=== PATIENT | female | born 1945 | race African-American/Black ===

== ENCOUNTER 2017-12-20 09:21 | Emergency (ER) | payer MEDICARE, OTHER ==
[~2017-12-20] VITALS: Ht 162.6 cm; Wt 55.0 kg
[2017-12-20 10:17] VITALS: BP 122/70; PULSE 68; RESP 15; TEMP 97.2; O2SAT 100
[2017-12-20 10:21] VITALS: BP 122/70; PULSE 68; RESP 15; TEMP 97.2; O2SAT 100
[2017-12-20] MEDS ORDERED: LEVO25TA4 PO (11:39)
[2017-12-20] MEDS ORDERED: PIOG15TA5 PO (11:39)
--- NOTE | 2017-12-20 12:06 | PD ---
HPI Chief Complaint: Injury Time Seen by Provider: 11:56 Travel History International Travel<30 days: No Contact w/Intl Traveler<30days: No Traveled to known affect area: No History of Present Illness HPI 72 year-old female presents to the emergency room for evaluation of left ankle pain and swelling after falling a week ago. Patient states her blood pressure occasionally gets low and she got lightheaded while coming out of [employer]. She does not remember twisting or falling onto her ankle but believe she may have struck it against a rock. She denies loss of consciousness, hitting her head, headache, back pain, neck pain, hip pain, or any other injuries. She has been elevating and applying ice but has not taken anything for pain. Pain is localized to the lateral malleolus without radiation. Worsened with range of motion and ambulation. PFSH Past Medical History Cardiovascular Problems: Yes Diabetes: Yes Patient Takes Glucophage: No Thyroid Disease: Yes Tetanus Vaccination: Unknown Menopausal: Yes Past Surgical History Abdominal Surgery: Yes ("TUMMY TUCK") Cholecystectomy: Yes Social History Alcohol Use: No Tobacco Use: No Substance Use: No Allergies-Medications (Allergen,Severity, Reaction): Coded Allergies: No Known Allergies (Verified Adverse Reaction, Unknown, 12/20/17) Reported Meds & Prescriptions Reported Meds & Active Scripts Active Reported Levothyroxine (Levothyroxine Sodium) 25 Mcg Tab 25 Mcg PO DAILY Pioglitazone (Pioglitazone HCl) 15 Mg Tab 15 Mg PO DAILY Review of Systems Except as stated in HPI: all other systems reviewed are Neg Physical Exam Narrative GENERAL: Well-nourished, well-developed female no acute distress. Afebrile. Ambulatory. SKIN: Focused skin assessment warm/dry. Mild ecchymosis over the left lateral malleolus. HEAD: Normocephalic. EYES: No scleral icterus. No injection or drainage. NECK: Supple, trachea midline. No JVD or lymphadenopathy. CARDIOVASCULAR: Regular rate and rhythm without murmurs, gallops, or rubs. RESPIRATORY: Breath sounds equal bilaterally. No accessory muscle use. MUSCULOSKELETAL: No cyanosis. Moderate to significant edema and tenderness to palpation over the left lateral malleolus. Edema extends into the foot. 2+ dorsalis pedis pulse. Full range of motion of the left ankle. No tenderness to palpation of the foot. Data Data Last Documented VS Vital Signs Date Time Temp Pulse Resp B/P (MAP) Pulse Ox O2 Delivery O2 Flow Rate FiO2 12/20/17 10:21 97.2 68 15 122/70 (87) 100 Room Air Orders Orders Ankle, Complete ([id number]) (12/20/17 ) Splint Or Brace Apply/Monitor (12/20/17 13:20) Ed Discharge Order (12/20/17 13:22) MDM Medical Decision Making Medical Screen Exam Complete: Yes Emergency Medical Condition: Yes Medical Record Reviewed: Yes Differential Diagnosis Sprain, strain, contusion, fracture Narrative Course 72-year-old female presents to the emergency room for evaluation of left ankle pain and swelling after injuring it a week ago. Patient tripped and fell and has had persistent pain and edema since then. Physical exam reveals moderate tenderness to palpation and edema over the left lateral malleolus. Edema extends into the foot. There is no foot pain. She has full range of motion. It is neurovascularly intact with 2+ dorsalis pedis pulse. X-ray is negative for fracture. This is ankle sprain. Patient placed in ankle stirrup. Told to follow-up with her primary care physician or return for worsening symptoms. She understands and agrees to plan. Diagnosis Primary Impression: Left ankle sprain Qualified Codes: S93.402A - Sprain of unspecified ligament of left ankle, initial encounter Referrals: Primary Care Physician Additional Instructions: Rest and drink plenty of fluids. Ankle stirrup as needed for pain. Take ibuprofen with food as directed, as needed for pain. Apply ice to the affected area for 20 minutes at a time, as needed for pain and swelling. Follow-up with a primary care physician. Return to the emergency room for worsening symptoms. Med/Other Pt SpecificInfo: Prescription(s) given Disposition: 01 DISCHARGE HOME Condition: Stable Miroslava Michaels Dec 20, 2017 12:06
--- NOTE | 2017-12-20 13:18 | RADRPT ---
EXAM DATE/TIME: 12/20/2017 12:23 [facility] COMPARISON: No previous studies available for comparison. INDICATIONS : Twisted ankle x1 week ago pain with swelling lateral malleous. MEDICAL HISTORY : None. SURGICAL HISTORY : None. ENCOUNTER: Initial ACUITY: 1 week PAIN SCORE: 7/10 LOCATION: Left ankle. FINDINGS: Three view exam was performed of the left ankle. The bony structures are in normal alignment. No ev idence of acute fracture or malalignment. There is soft tissue swelling over the lateral malleolus. The ankle mortise is intact. No radiopaque foreign bodies are seen. Bony mineralization is normal. CONCLUSION: Soft tissue swelling over the lateral malleolus with no acute fracture or malalignmen aminah Tucker MD on December 20, 2017 at 13:15 Board Certified Radiologist. This report was verified electronically.
== END 2017-12-20 13:56 | disposition home or self-care (01) ==
LOC: NEPK 09:21
DX: S93.402A Sprain of unspecified ligament of left ankle, initial encounter (principal); W01.0XXA Fall on same level from slipping, tripping and stumbling without subsequent striking against object, initial encounter
CPT/HCPCS: 73610; 99283; L1906